=== PATIENT | male | born 1985 | race Caucasian/White ===

== ENCOUNTER 2016-08-26 05:22 | Day surgery (SDC) | payer OTHER ==
[~2016-08-26 05:22] MED LIST: CEFAZOLIN 2 GM/D5W RTU 2 GM/50 ML RTUPB IV PRN; LACTATED RINGERS 1000 ML IV PRN; LIDOCAINE 0.5% INJ-PF (5 MG/ML) 50 ML SDV SUBCUT PRN
[2016-08-26] MEDS ORDERED: BUPIVACAINE HCL 0.25 % INJ/PF (2.5 MG/1 ML) 30 ML VIAL ONE (06:39)
[2016-08-26] MEDS ORDERED: FENTANYL CITRATE INJ/PF 250 MCG/5 ML AMPULE ONE (06:53)
[2016-08-26] MEDS ORDERED: MIDAZOLAM 2 MG/2 ML INJ ONE (06:53)
[2016-08-26] MEDS ORDERED: PROPOFOL INJ 200 MG/20 ML VIAL IV ONE (06:54)
[2016-08-26] MEDS ORDERED: OXYCODONE-ACETAMINOPHEN 5-325 MG TABLET PO PRN ×2 (07:42)
[2016-08-26] MEDS ORDERED: PROMETHAZINE HCL INJ 25 MG/1 ML VIAL IV PRN ×2 (07:42)
[2016-08-26] MEDS ORDERED: MEPERIDINE HCL/PF INJ 25 MG/1 ML DISP.SYRIN IV PRN (07:42)
[2016-08-26] MEDS ORDERED: DIPHENHYDRAMINE HCL 50 MG/ML VIAL IV PRN (07:42)
[2016-08-26] MEDS ORDERED: MORPHINE SULFATE 10 MG/ML INJ IV PRN ×2 (07:42→10:19)
[2016-08-26] MEDS ORDERED: ONDANSETRON HCL INJ/PF 4 MG/2 ML SDV IV PRN ×2 (07:42→10:19)
[2016-08-26] MEDS ORDERED: FENTANYL CITRATE INJ/PF 100 MCG/2 ML AMPUL IV PRN ×3 (07:42)
[2016-08-26] MEDS: FENTANYL CITRATE INJ/PF 100 MCG/2 ML AMPUL ONE ×2 (09:07→09:25)
--- NOTE | 2016-08-26 09:48 | OPERATIVE REPORT E ---
Operative Report NAME: ONEL SANTORO : 1985 AGE: 31Y DATE OF SURGERY: 08/26/2016 ROOM: PREOPERATIVE DIAGNOSIS: Symptomatic cholelithiasis. POSTOPERATIVE DIAGNOSIS: Chronic cholecystitis. SURGEON: EAN GALLOWAY M.D. ASH KIER BOILER: Johnathan ANESTHESIA: General endotracheal. ESTIMATED BLOOD LOSS: 10 mL FLUIDS: 1100 mL of crystalloid. COMPLICATIONS: There were no complications. INDICATIONS FOR OPERATION: The patient is a 31-year-old male who presented with symptomatic cholelithiasis, who is scheduled for elective cholecystectomy. PROCEDURE NOTE: Under general anesthesia, the patient's abdomen was clipped and then sterilely prepped and draped with ChloraPrep in the usual fashion. A time out was done. Using 0.25% Marcaine, severe mL were infiltrated below the umbilicus in the dermis and subcutaneous tissues. The scalpel was used to incise the skin and using an open technique, a 1 cm Dheeraj trocar was inserted. A 5 mm trocar was inserted in the epigastrium and two 5 mm trocars in the right upper quadrant. The patient was then placed in a head up left side down position. The gallbladder was grasped at the fundus and infundibulum. Dissection was done with a combination of [place] and L-hook dissection. There was noted to be a lot of fatty edema at the infundibulum, however, with careful dissection starting at the gallbladder, the anterior cystic duct was identified and was clipped x2 proximally, once distally, and transected with pretty. A small anterior artery was also identified and clipped proximally and distally and then transected with pretty. During dissection a small posterior artery was also identified and that was clipped x2 proximally and once distally and again transected with pretty. The gallbladder was then dissected from the liver using the L-hook with Bovie. There were several small oozing spots from the liver which were controlled with the Bovie. The gallbladder was completely removed without rupture and placed in a bag and retrieved through the umbilical port. Upon completion of the procedure, hemostasis was excellent and the effluent was clear. The total irrigation was about 2 L of crystalloid. At this point, the trocars were then discontinued. The umbilical fascia was closed with 2 interrupted 0 Vicryl. The skin was closed with subcuticular 4-0 Monocryl. Steri-Strips and dressings were applied. The patient tolerated the procedure well. He was extubated and taken to the PACU. Needle and sponge counts were correct. DICTATING PHYSICIAN: EAN GALLOWAY M.D. [id number] PHY#: [id number] ID: [id number] JOB#: [id number] ACCT: [id number] cc:EAN GALLOWAY M.D. >
[2016-08-26] MEDS ORDERED: HYDROCODONE/ACETAMINOPHEN 5-325 MG TABLET ONE (10:04)
[2016-08-26] MEDS ORDERED: HYDROCODONE/ACETAMINOPHEN 5-325 MG TABLET PO PRN (10:19)
[2016-08-26 11:35] VITALS: BP 118/67
[2016-08-26] MEDS ORDERED: VECURONIUM BROMIDE INJ 10 MG VIAL IV ONE (14:08)
[2016-08-26] MEDS ORDERED: METOCLOPRAMIDE HCL INJ/PF 10 MG/2 ML SDV ONE (14:08)
[2016-08-26] MEDS ORDERED: DEXAMETHASONE SOD PHOSPHATE INJ 4 MG/1 ML VIAL ONE (14:08)
[2016-08-26] MEDS ORDERED: SUCCINYLCHOLINE CHLORIDE INJ 200 MG/10 ML VIAL ONE (14:08)
[2016-08-26] MEDS ORDERED: GLYCOPYRROLATE INJ 0.4 MG/2 ML VIAL ONE (14:08)
[2016-08-26] MEDS ORDERED: NEOSTIGMINE METHYLSULFATE 10 MG/10 ML VIAL ONE (14:08)
[2016-08-26] MEDS ORDERED: LIDOCAINE 2% INJ-PF (20 MG/ML) 10 ML AMPUL ONE (14:08)
[2016-08-26] MEDS ORDERED: ONDANSETRON HCL INJ/PF 4 MG/2 ML SDV ONE (14:08)
== END 2016-08-26 11:10 | disposition home or self-care (01) ==
LOC: OROUT 05:22
PROVIDERS: ATTEND Surgery
PROC: 0FT44ZZ Resection of Gallbladder, Percutaneous Endoscopic Approach (ICD-10-PCS; principal; 2016-08-26 07:30)
DX: K80.10 Calculus of gallbladder with chronic cholecystitis without obstruction (principal); M17.10 Unilateral primary osteoarthritis, unspecified knee; Z79.899 Other long term (current) drug therapy
CPT/HCPCS: 88304 ×2; 47562; J2250; J1100; J3010 ×2; J3490 ×2; J2765; J0330; J2405; J2704; J0690; 790